=== PATIENT | male | born 1940 | race African-American/Black ===

== ENCOUNTER 2016-12-25 11:43 | Emergency (ER) | payer OTHER ==
[~2016-12-25 11:43] MED LIST: FLEXERIL10 M1 PO; MAGIC MOUTHWASH; NORVASC10 MG PO; OXYCODONE HCL20 M1 PO; OXYCONTIN80 MG PO; PERCOCET10 PO; PERCODAN TABLET1 TA1 PO; PREDNISONE PO
== END 2016-12-25 12:48 | disposition home or self-care (01) ==
LOC: SED 11:43
DX: R07.0 Pain in throat (principal); F17.200 Nicotine dependence, unspecified, uncomplicated; Z79.899 Other long term (current) drug therapy
CPT/HCPCS: 87651; 99283